=== PATIENT | male | born 2000 | race Caucasian/White ===

== ENCOUNTER 2019-11-09 10:05 | Emergency (ER) | payer SELFPAY ==
[~2019-11-09] VITALS: Ht 190.5 cm; Wt 86.3 kg
[2019-11-09 11:16] LABS: BILIRUBIN,URINE NEGATIVE (NEG); CLARITY,URINE CLEAR; COLOR,URINE YELLOW; NITRITE,URINE NEGATIVE (NEG); PH,URINE 7.5 (<5.0-8.0); PROTEIN,URINE NEGATIVE (NEG-TRACE)
[2019-11-09 11:34] LABS: BACTERIA,URINE FEW /HPF (0-FEW); RBC,URINE RARE /HPF (0-2); SQUAMOUS EPITHELIAL CELL,UR FEW /LPF; WBC,URINE RARE /HPF (0-4)
[2019-11-09] MEDS ORDERED: NITR100C62 PO (11:49)
--- NOTE | 2019-11-09 11:52 | PHYS DOC ---
Past Medical History Past Medical History: No Pertinent History Past Surgical History: Other Additional Past Surgical Histo: BILATERAL LEG "RODS" Smoking Status: Never Smoker Alcohol Use: None General Adult EDM: Chief Complaint: PAIN ON URINATION HPI: HPI: Patient is a 19 year old male who presents with dysuria. Patient states that he used a port a potty and then 1 day later developed dysuria. Denies any other symptoms. Denies concern for STDs. Review of Systems: Review of Systems: General: Denies fever, chills, sweats, fatigue Eyes: Denies drainage, blurred vision, eye redness HENT: Denies rhinorrhea, sore throat, earache Respiratory: Denies cough, shortness of breath, wheezing Cardiac: Denies edema, palpitations, chest pain GI: Denies abdominal pain, Nausea, vomiting MSK: Denies back pain, neck pain Skin: Denies rash, jaundice Neuro: Denies headache, dizziness Psychiatric: Denies SI/HI Heart Score: Risk Factors: Risk Factors: DM, Current or recent (<one month) smoker, HTN, HLP, family histo ry of CAD, obesity. Risk Scores: Score 0 - 3: 2.5% MACE over next 6 weeks - Discharge Home Score 4 - 6: 20.3% MACE over next 6 weeks - Admit for Clinical Observation Score 7 - 10: 72.7% MACE over next 6 weeks - Early Invasive Strategies Allergies: Allergies: Allergies Coded Allergies Type Severity Reaction Last Updated Verified No Known Drug Allergies 11/09/19 No Physical Exam: PE: General: Awake, alert, NAD. Well Nourished, well hydrated. Cooperative HEENT: Atraumatic, EOMI, PERRL, airway patent, moist oral mucosa Neck: Supple, trachea midline Respiratory: CTA bilaterally, normal effort, no wheezing/crackles CV: RRR, no murmur, cap refill <2 GI: Soft, nondistended, nontender, no masses MSK: No obvious deformities Skin: Warm, dry, intact Neuro: A&O x3, speech NL, sensory and motor grossly intact, no focal deficits Psych: Normal affect, normal mood, not suicidal or homicidal Current Patient Data: Labs: Laboratory Tests Test 11/09/19 10:04 Urine Collection Type Unknown Urine Color Yellow Urine Clarity Clear Urine pH 7.5 (<5.0-8.0) Urine Specific [place] 1.020 (1.000-1.030) Urine Protein Negative mg/dL (NEG-TRACE) Urine Glucose (UA) Negative mg/dL (NEG) Urine Ketones (Stick) Negative mg/dL (NEG) Urine Blood Negative (NEG) Urine Nitrite Negative (NEG) Urine Bilirubin Negative (NEG) Urine Urobilinogen Dipstick 1.0 mg/dL (0.2 mg/dL) Urine Leukocyte Esterase Trace (NEG) Urine RBC Rare /HPF (0-2) Urine WBC Rare /HPF (0-4) Urine Squamous Epithelial Cells Few /LPF Urine Bacteria Few /HPF (0-FEW) Vital Signs: Vital Signs Date Time Temp Pulse Resp B/P (MAP) Pulse Ox O2 Delivery O2 Flow Rate FiO2 11/09/19 10:35 98.1 55 20 126/60 (82) 98 Room Air 98.1 EKG: EKG: [] Radiology/Procedures: Radiology/Procedures: [] Course & Med Decision Making: Course & Med Decision Making Pertinent Labs and Imaging studies reviewed. (See chart for details) Patient is a 19 year old male who presents to the Emergency Room complaining of dysuria. Denies penile discharge. UA shows small amount of bacteria. I have discussed that in his age group this is more likely to be GC/Chal and patient stated understanding. Will treat for urethritis. I discussed with him we would get results back in the next couple of days and call him with results. Dragon Disclaimer: Dragon Disclaimer: This electronic medical record was generated, in whole or in part, using a voice recognition dictation system. Departure Departure Impression: Primary Impression: Urethritis Disposition: 01 HOME, SELF-CARE Condition: STABLE Referrals: Gemma DEL VALLE MD (PCP) Patient Instructions: Urethritis, Adult Scripts Nitrofurantoin Monohyd/M-Cryst (MACROBID 100 MG CAPSULE) 100 Mg Capsule 1 CAP PO BID for 5 Days, #10 CAP 0 Refills Prov: KUN TEMPLE MD 11/09/19 Justicifation of Admission Dx: Justifications for Admission: Justification of Admission Dx: No KUN TEMPLE MD Nov 09, 2019 11:52
[2019-11-09] MEDS ORDERED: ONDANSETRON ODT 4 MG TAB.RAPDIS. PO ONE (12:00)
[2019-11-09] MEDS ORDERED: AZITHROMYCIN 250 MG TABLET. PO ONE (12:00)
[2019-11-09] MEDS ORDERED: cefTRIAXone IM 250 MG VIAL IM ONE (12:00)
[2019-11-09 12:27] VITALS: BP 128/66
[2019-11-10 23:09] LABS: GC PROBE Negative (Negative)
== END 2019-11-09 12:27 | disposition home or self-care (01) ==
LOC: ER 10:05
DX: N34.2 Other urethritis (principal); R30.0 Dysuria; Z98.890 Other specified postprocedural states
CPT/HCPCS: 81001; 87491; 87591; 96372; 99283; J0696

== ENCOUNTER 2021-08-18 11:57 | Emergency (ER) | payer OTHER ==
[~2021-08-18] VITALS: Ht 190.5 cm; Wt 90.0 kg
[~2021-08-18 11:57] MED LIST: NITR100C62 PO
[2021-08-18 12:04] VITALS: BP 140/84
--- NOTE | 2021-08-18 13:09 | RAD ---
Exam: XR RT WRIST 3VIEWS History: 3 views of the right wrist. Comparison: None. Findings: Osseous mineralization is normal. No acute fracture or dislocation. Ulnar minus deviation. No degener ative change. No focal soft tissue swelling. Impression: 1. No acute osseous abnormality in the right wrist. Recommend repeat radiographs in 1-2 weeks to exc lude occult fracture if there is persistent pain at the scaphoid. Electronically signed by: Donnie Lainez MD (08/18/2021 1:07 PM) [id number]
--- NOTE | 2021-08-18 13:11 | RAD ---
XR EXAM OF ANKLE_LEFT 3V History: Pain. Comparison: None. Findings: Osseous mineralization is normal. There is an oblique fracture of the distal fibular metadiaphysis ex tending to the level of the tibial plafond. Borderline widening of the medial clear space. The talar dome is intact. Lateral ankle soft tissue swelling. Impression: 1. Oblique fracture of the distal fibular metadiaphysis extending to the level of the tibial plafond . Possible medial clear space widening may represent syndesmotic injury. Electronically signed by: Donnie Lainez MD (08/18/2021 1:08 PM) [id number]
[2021-08-18] MEDS ORDERED: KETOROLAC 30 MG/ML VIAL. IM ONE (13:30)
--- NOTE | 2021-08-18 14:02 | PHYS DOC ---
Past Medical History Past Medical History: No Pertinent History Additional Past Surgical Histo: BILATERAL LEG "RODS" Smoking Status: Never Smoker Alcohol Use: None General Adult EDM: Chief Complaint: ANKLE PROBLEM HPI: HPI: Patient is a 21 year old male who presents with left ankle and right wrist pain x1 week. Patient was playing baseball last week when his pain began. Another player hit the baseball with a bat in through the back, which then struck the medial aspect of his ankle. Patient reports that he has been ambulating on it since injury, though painfully. His wrist pain is mild and causes him minimal discomfort. Patient has no other injuries or complaints at this time. Review of Systems: Review of Systems: ROS negative or noncontributory except as mentioned in HPI. Heart Score: C/O Chest Pain: No Current Medications: Current Medications Medications (Trade) Dose Ordered Sig/Amos Start Time Stop Time Status Last Admin Dose Admin Ketorolac Tromethamine (Toradol 30mg Vial) 30 mg 1X ONCE 08/18/21 13:30 08/18/21 13:31 DC 08/18/21 13:00 30 MG Allergies: Allergies: Allergies Coded Allergies Type Severity Reaction Last Updated Verified No Known Drug Allergies 11/09/19 No Physical Exam: PE: Constitutional: Well developed, well nourished, no acute distress, non-toxic appearance. HENT: Normocephalic, atraumatic, bilateral external ears normal, oropharynx moist, no oral exudates, nose normal. Eyes: EOMI, conjunctiva normal, no discharge. Neck: Normal range of motion, no stridor. Skin: Warm, dry, no erythema, no rash. Back: No tenderness, no CVA tenderness. Extremities: Left ankle with diffuse swelling and tenderness, DP/PT pulses 2+ and symmetrical, capillary refill less than 2 seconds, great toe dorsiflexion i ntact. Extremities otherwise no tenderness, no cyanosis, no clubbing, active and passive ROM intact. Neurologic: Alert and oriented x4, normal motor function, normal sensory function, no focal deficits noted. Current Patient Data: Vital Signs: Vital Signs Date Time Temp Pulse Resp B/P (MAP) Pulse Ox O2 Delivery O2 Flow Rate FiO2 08/18/21 12:04 98.0 78 20 140/84 (102) 98 Room Air 98.0 Radiology/Procedures: Radiology/Procedures: PROCEDURE: WRIST 3V RIGHT Exam: XR RT WRIST 3VIEWS History: 3 views of the right wrist. Comparison: None. Findings: Osseous mineralization is normal. No acute fracture or dislocation. Ulnar minus deviation. No degenerative change. No focal soft tissue swelling. Impression: 1. No acute osseous abnormality in the right wrist. Recommend repeat radiog raphs in 1-2 weeks to exclude occult fracture if there is persistent pain at the scaphoid. Electronically signed by: Donnie Lainez MD (08/18/2021 1:07 PM) [id number] PROCEDURE: ANKLE LEFT 3V XR EXAM OF ANKLE_LEFT 3V History: Pain. Comparison: None. Findings: Osseous mineralization is normal. There is an oblique fracture of the distal fibular metadiaphysis extending to the level of the tibial plafond. Borderline widening of the medial clear space. The talar dome is intact. Lateral ankle soft tissue swelling. Impression: 1. Oblique fracture of the distal fibular metadiaphysis extending to the level of the tibial plafond. Possible medial clear space widening may represent syndesmotic injury. Electronically signed by: Donnie Lainez MD (08/18/2021 1:08 PM) [id number] Course & Med Decision Making: Course & Med Decision Making Pertinent Labs and Imaging studies reviewed. (See chart for details) Plain films reveal a medial malleoli are fracture on the left side. It is somewhat displaced. Dr. De La Garza, D.P.M., was consulted. He does have availability in office today for further evaluation and management of the injury. Dr. De La Garza is considering surgical intervention because the patient is young and active. Patient was directed by ER staff directly to the outpatient office. Chivo Disclaimer: Chivo Disclaimer: This electronic medical record was generated, in whole or in part, using a voice recognition dictation system. Departure Departure Impression: Primary Impression: Medial malleolar fracture Qualified Codes: S82.52XA - Displaced fracture of medial malleolus of left tibia, initial encounter for closed fracture Disposition: 01 HOME / SELF CARE / HOMELESS Condition: STABLE Referrals: Gemma DEL VALLE MD (PCP) ANOOP DE LA GARZA DPGreyson Patient Instructions: Ankle Fracture, [id number] Additional Instructions: Please proceed directly to Dr. De La Garza's office. EMERGENCY DEPARTMENT GENERAL DISCHARGE INSTRUCTIONS Thank you for coming to [facility] Emergency Department (ED) to day and trusting us with you care. We trust that you had a positive experience in our Emergency Department. If you wish to speak to the department management, you may call the director at . YOUR FOLLOW UP INSTRUCTIONS ARE FOLLOWS: 1. Follow up with your primary care doctor. If you do not have a primary doctor, please ask for a resource list of physicians or clinics that may be able to assist you with follow up care. 2. The emergency provider has interpreted your imaging studies, if any were ordered. The radiology member service specialist also reviewed them. If there is a change in the findings, you will be notified in 48 hours when at all possible. 3. If a lab test or culture has been done, your results will be reviewed and you will be notified if you need a change in treatment. 4. Follow instructions verbalized to you and refer to the printouts if needed. ADDITIONAL INSTRUCTIONS AND INFORMATION: 1. Your care today has been supervised by a physician who is specially trained in emergency care. Many problems require more than one evaluation for a complete diagnosis and treatment. We recommend that you schedule your follow up appointment as recommended to ensure complete treatment of you illness or injury. If you are unable to obtain follow up care and continue to have a problem, or if your condition worsens, we recommend that you return to the ED. 2. We are not able to safely determine your condition over the phone nor are we able to give sound medical advice over the phone. For these safety reasons, if you call for medical advice we will ask you to come to the ED for further evaluation. 3. If you have any questions regarding these discharge instructions please call the ED at . SAFETY INFORMATION: In the interest of safety, wellness, and injury prevention; we encourage you to wear your seat belt, if you smoke; quite smoking, and we encourage family to use a protective helmet for bicycling and other sporting events that present an increased risk for head injury. IF YOUR SYMPTOMS WORSEN OR NEW SYMPTOMS DEVELOP, OR YOU HAVE CONCERNS ABOUT YOUR CONDITION; OR IF YOUR CONDITION WORSENS WHILE YOU ARE WAITING FOR YOUR FOLLOW UP APPOINTMENT; EITHER CONTACT YOUR PRIMARY CARE DOCTOR, THE PHYSICIAN WHOSE NAME AND NUMBER YOU WERE GIVEN, OR RETURN TO THE ED IMMEDIATELY. JASON GREER August 18, 2021 14:02
== END 2021-08-18 14:12 | disposition home or self-care (01) ==
LOC: ER 11:57
DX: S82.52XA Displaced fracture of medial malleolus of left tibia, initial encounter for closed fracture (principal); W21.11XA Struck by baseball bat, initial encounter; Y93.64 Activity, baseball; Y92.89 Other specified places as the place of occurrence of the external cause; Y99.8 Other external cause status
CPT/HCPCS: 73110; 73610; 96372; 99284; J1885